=== PATIENT | male | born 1965 | race Caucasian/White ===

== ENCOUNTER 2020-06-04 09:34 | Inpatient (IN) | payer OTHER ==
[~2020-06-04] VITALS: Ht 190.5 cm; Wt 127.0 kg
[2020-06-04] VITALS (8 sets, daily range): BP systolic 139–147; BP diastolic 73–88
[~2020-06-04 09:34] MED LIST: ASA81 MG PO; Z.0.HYDROCHLOROTH12. PO; Z.0.NORVASC5 MG PO; [UNRECOGNIZED DRUG - OTHER] PO
[2020-06-04 10:28] LABS: BASOPHILS # (AUTO) 0.1 (0.0-0.1); BASOPHILS % 0.8 % (0.0-1.0); EOSINOPHILS # (AUTO) 0.1 (0.0-0.4); EOSINOPHILS % 1.2 % (0.0-6.0); HEMATOCRIT 49.7 % (38.2-49.6); HEMOGLOBIN 16.8 g/dL (14.0-18.0); LYMPHOCYTES # (AUTO) 1.1 (1.0-3.2); LYMPHOCYTES % 10.6 % (18.0-39.1); MEAN CORPUSCULAR HEMOGLOBIN 29.8 pg (28-32); MEAN CORPUSCULAR HGB CONC 33.8 g/dL (31-35); MEAN CORPUSCULAR VOLUME 88.1 fL (81-99); MONOCYTES # (AUTO) 0.9 (0.2-0.8); MONOCYTES % 8.6 % (4.4-11.3); NEUTROPHILS # (AUTO) 8.1 (2.1-6.9); NEUTROPHILS % 78.6 % (38.7-80.0); PLATELET COUNT 265 x10e3/uL (140-360); RED BLOOD COUNT 5.64 x10e6/uL (4.3-5.7); RED CELL DISTRIBUTION WIDTH 12.8 % (11.7-14.4)
[2020-06-04 10:50] LABS: ALANINE AMINOTRANSFERASE 136 IU/L (0-55); ALBUMIN 4.3 g/dL (3.5-5.0); ALBUMIN/GLOBULIN RATIO 1.3 (0.8-2.0); ALKALINE PHOSPHATASE 79 IU/L (40-150); ANION GAP 16.6 mmol/L (8-16); BLOOD UREA NITROGEN 27 mg/dL (7-26); BUN/CREATININE RATIO 25 (6-25); CALCIUM 9.1 mg/dL (8.4-10.2); CARBON DIOXIDE 27 mmol/L (22-29); CHLORIDE 100 mmol/L (98-107); CREATINE KINASE 304 IU/L (30-200); CREATININE, SERUM 1.08 mg/dL (0.72-1.25); EST GLOMERULAR FILTRATION RATE > 60 ML/MIN (60-); GLUCOSE 123 mg/dL (74-118); POTASSIUM 3.6 mmol/L (3.5-5.1); SODIUM 140 mmol/L (136-145)
[2020-06-04] MEDS ORDERED: GADOBENATE DIMEGLUMINE 1 ML IV ONE (11:34)
[2020-06-04] MEDS ORDERED: NEXIUM20 MG PO (13:23)
[2020-06-04] MEDS ORDERED: MELATONIN5 M4 PO (13:23)
[2020-06-04] MEDS ORDERED: ALLOPURINOL100 MG PO (13:23)
[2020-06-04] MEDS ORDERED: FOSINOPRIL SODI40 MG PO (15:54)
[2020-06-04] MEDS ORDERED: ONDANSETRON HCL INJ 2MG/ML 2ML 2 MG/ML VIAL IV PRN (17:30)
[2020-06-04] MEDS ORDERED: MAGNESIUM/ALUMINUM/SIMETHICONE 30 ML UDC PO PRN (17:30)
[2020-06-04] MEDS ORDERED: HYDRALAZINE HCL 20 MG/ML VIAL IV PRN (18:00)
[2020-06-04 18:14] LABS: CREATINE KINASE MB 2.1 ng/mL (0-5.0)
[2020-06-04] MEDS: MELATONIN 5 MG TABLET PO SCH (21:44)
[2020-06-04] MEDS: ACETAMINOPHEN 325 MG TAB PO PRN (21:51)
[2020-06-04] MEDS: TEMAZEPAM 7.5 MG CAP PO PRN (23:44)
[2020-06-05] VITALS (9 sets, daily range): BP systolic 119–175; BP diastolic 82–104
[2020-06-05 00:34] LABS: CREATINE KINASE MB 2.1 ng/mL (0-5.0)
[2020-06-05 00:47] LABS: FREE THYROXINE INDEX 2.2186 (1.4-3.8); THYROID STIMULATING HORMONE 2.089 uIU/mL (0.350-4.940)
[2020-06-05] MEDS: ACETAMINOPHEN 325 MG TAB PO PRN (04:51)
[2020-06-05] MEDS: ACETAMINOPHEN/CODEINE 300MG - 30MG TAB PO PRN ×3 (06:14→18:29)
[2020-06-05 06:28] LABS: BASOPHILS # (AUTO) 0.1 (0.0-0.1); EOSINOPHILS # (AUTO) 0.2 (0.0-0.4); EOSINOPHILS % 2.5 % (0.0-6.0); HEMATOCRIT 45.8 % (38.2-49.6); HEMOGLOBIN 15.5 g/dL (14.0-18.0); LYMPHOCYTES % 14.6 % (18.0-39.1); MEAN CORPUSCULAR HEMOGLOBIN 29.5 pg (28-32); MEAN CORPUSCULAR HGB CONC 33.8 g/dL (31-35); MEAN CORPUSCULAR VOLUME 87.2 fL (81-99); MONOCYTES # (AUTO) 0.8 (0.2-0.8); MONOCYTES % 11.3 % (4.4-11.3); NEUTROPHILS # (AUTO) 4.7 (2.1-6.9); NEUTROPHILS % 70.5 % (38.7-80.0); PLATELET COUNT 224 x10e3/uL (140-360); RED BLOOD COUNT 5.25 x10e6/uL (4.3-5.7); RED CELL DISTRIBUTION WIDTH 12.8 % (11.7-14.4)
[2020-06-05 07:06] LABS: ALANINE AMINOTRANSFERASE 120 IU/L (0-55); ALBUMIN 3.9 g/dL (3.5-5.0); ALBUMIN/GLOBULIN RATIO 1.2 (0.8-2.0); ALKALINE PHOSPHATASE 71 IU/L (40-150); ANION GAP 15.9 mmol/L (8-16); BLOOD UREA NITROGEN 24 mg/dL (7-26); BUN/CREATININE RATIO 29 (6-25); CALCIUM 9.1 mg/dL (8.4-10.2); CARBON DIOXIDE 26 mmol/L (22-29); CHLORIDE 98 mmol/L (98-107); CREATININE, SERUM 0.83 mg/dL (0.72-1.25); EST GLOMERULAR FILTRATION RATE > 60 ML/MIN (60-); GLUCOSE 122 mg/dL (74-118); SODIUM 137 mmol/L (136-145)
[2020-06-05 07:17] LABS: POTASSIUM 2.9 mmol/L (3.5-5.1)
[2020-06-05] MEDS ORDERED: POTASSIUM CHLORIDE 20 MEQ TAB CR PO STA (07:28)
[2020-06-05] MEDS: ALLOPURINOL 100 MG TAB PO SCH (07:55)
[2020-06-05] MEDS: AMLODIPINE BESYLATE 10 MG TAB PO SCH (07:55)
[2020-06-05] MEDS: GABAPENTIN 100 MG CAP PO SCH ×3 (07:55→20:44)
[2020-06-05] MEDS: HYDROCHLOROTHIAZIDE 25 MG TAB PO SCH (07:56)
[2020-06-05] MEDS: ASPIRIN 81 MG ENTERIC COATED PO SCH (07:56)
[2020-06-05 08:37] LABS: HIV 1&2 AB SCREEN NON-REACTIVE (NONREACTIVE)
[2020-06-05] MEDS: FOSINOPRIL SODIUM 10 MG TAB PO SCH (10:42)
[2020-06-05] MEDS: IBUPROFEN 400 MG TAB PO PRN ×2 (15:00→20:46)
[2020-06-05 16:24] LABS: % IRON SATURATION 20 % (15-50); IRON 69 ug/dL (65-175); TOTAL IRON BINDING CAPACITY 353 ug/dL (261-478); TRANSFERRIN 252 mg/dL (174-364)
[2020-06-05] MEDS ORDERED: SODIUM CHLORIDE 0.9% 250ML 250 ML ONE (17:27)
[2020-06-05] MEDS ORDERED: POTASSIUM CHLORIDE 10MEQ EA PO ONE (18:00)
[2020-06-05] MEDS: MELATONIN 5 MG TABLET PO SCH (20:44)
[2020-06-05] MEDS: [UNRECOGNIZED DRUG - OTHER] IV SCH ×2 (22:00→22:30)
[2020-06-06] VITALS (7 sets, daily range): BP systolic 114–139; BP diastolic 76–89
[2020-06-06] MEDS ORDERED: DIPHENHYDRAMINE HCL INJ 50 MG/ML VIAL IV PRN (01:45)
[2020-06-06] MEDS: ACETAMINOPHEN/CODEINE 300MG - 30MG TAB PO PRN ×4 (02:00→21:03)
[2020-06-06] MEDS ORDERED: DIPHENHYDRAMINE HCL INJ 50 MG/ML VIAL IV ONE (02:45)
[2020-06-06 05:42] LABS: INR 0.98; PROTHROMBIN TIME 13.6 seconds (11.9-14.5)
[2020-06-06] MEDS ORDERED: LIDOCAINE HCL 1% LOCAL INJ 20 ML VIAL ONE (08:09)
[2020-06-06] MEDS: AMLODIPINE BESYLATE 10 MG TAB PO SCH (08:35)
[2020-06-06] MEDS: ALLOPURINOL 100 MG TAB PO SCH (08:35)
[2020-06-06] MEDS: ASPIRIN 81 MG ENTERIC COATED PO SCH (08:35)
[2020-06-06] MEDS: GABAPENTIN 100 MG CAP PO SCH ×3 (08:35→21:02)
[2020-06-06] MEDS: FOSINOPRIL SODIUM 10 MG TAB PO SCH (08:35)
[2020-06-06] MEDS: HYDROCHLOROTHIAZIDE 25 MG TAB PO SCH (08:35)
[2020-06-06] MEDS ORDERED: IMMU GLOBULIN,GAMMA (IGG) 200 ML IV SCH (09:00)
[2020-06-06] MEDS: IBUPROFEN 400 MG TAB PO PRN (15:04)
[2020-06-06] MEDS ORDERED: MAGNESIUM HYDROXIDE 30 ML UDC PO ONE (20:30)
[2020-06-06] MEDS: DOCUSATE SODIUM 100 MG CAP PO PRN (21:02)
[2020-06-06] MEDS: MELATONIN 5 MG TABLET PO SCH (21:02)
[2020-06-07] VITALS (11 sets, daily range): BP systolic 122–154; BP diastolic 82–94
[2020-06-07] MEDS: ACETAMINOPHEN/CODEINE 300MG - 30MG TAB PO PRN ×2 (04:45→14:44)
[2020-06-07] MEDS: AMLODIPINE BESYLATE 10 MG TAB PO SCH (08:16)
[2020-06-07] MEDS: ALLOPURINOL 100 MG TAB PO SCH (08:16)
[2020-06-07] MEDS: HYDROCHLOROTHIAZIDE 25 MG TAB PO SCH (08:16)
[2020-06-07] MEDS: ASPIRIN 81 MG ENTERIC COATED PO SCH (08:16)
[2020-06-07] MEDS: FOSINOPRIL SODIUM 10 MG TAB PO SCH (08:16)
[2020-06-07] MEDS: GABAPENTIN 100 MG CAP PO SCH ×3 (08:16→20:44)
[2020-06-07] MEDS ORDERED: MAGNESIUM HYDROXIDE 30 ML UDC PO PRN (13:45)
[2020-06-07 14:22] LABS: APPEARANCE,CSF CLEAR (CLEAR)
[2020-06-07 14:23] LABS: TUBE NUMBER 3; WHITE BLOOD CELL,CSF 5 cells/uL (0-5)
[2020-06-07 14:26] LABS: COLOR,CSF XANTHOCHROMIC (COLORLESS)
[2020-06-07] MEDS ORDERED: CITRATE OF MAGNESIA 300ML BOTTLE PO ONE (16:15)
[2020-06-07] MEDS: MELATONIN 5 MG TABLET PO SCH (20:44)
[2020-06-07] MEDS: DOCUSATE SODIUM 100 MG CAP PO PRN (20:49)
[2020-06-07] MEDS: TEMAZEPAM 7.5 MG CAP PO PRN (20:49)
[2020-06-08] VITALS (8 sets, daily range): BP systolic 124–165; BP diastolic 78–96
[2020-06-08] MEDS: AMLODIPINE BESYLATE 10 MG TAB PO SCH (09:33)
[2020-06-08] MEDS: ALLOPURINOL 100 MG TAB PO SCH (09:33)
[2020-06-08] MEDS: HYDROCHLOROTHIAZIDE 25 MG TAB PO SCH (09:33)
[2020-06-08] MEDS: GABAPENTIN 100 MG CAP PO SCH ×3 (09:33→22:03)
[2020-06-08] MEDS: ASPIRIN 81 MG ENTERIC COATED PO SCH (09:33)
[2020-06-08] MEDS: FOSINOPRIL SODIUM 10 MG TAB PO SCH ×2 (09:33→22:12)
[2020-06-08] MEDS: DOCUSATE SODIUM 100 MG CAP PO PRN ×2 (12:30→16:59)
[2020-06-08] MEDS: MELATONIN 5 MG TABLET PO SCH (21:00)
[2020-06-08] MEDS: TEMAZEPAM 7.5 MG CAP PO PRN (22:23)
[2020-06-09] VITALS (7 sets, daily range): BP systolic 121–140; BP diastolic 55–94
[2020-06-09] MEDS: GABAPENTIN 100 MG CAP PO SCH ×3 (08:45→20:55)
[2020-06-09] MEDS: ALLOPURINOL 100 MG TAB PO SCH (08:45)
[2020-06-09] MEDS: FOSINOPRIL SODIUM 10 MG TAB PO SCH (08:45)
[2020-06-09] MEDS: ASPIRIN 81 MG ENTERIC COATED PO SCH (08:45)
[2020-06-09] MEDS: AMLODIPINE BESYLATE 10 MG TAB PO SCH (08:45)
[2020-06-09] MEDS: HYDROCHLOROTHIAZIDE 25 MG TAB PO SCH (08:45)
[2020-06-09] MEDS ORDERED: IMMU GLOBULIN,GAMMA (IGG) 200 ML IV SCH ×2 (14:00→15:00)
[2020-06-09] MEDS ORDERED: METHYLPREDNISOLONE SOD SUCC 125 MG/2ML VIAL IV ONE (15:00)
[2020-06-09] MEDS: ACETAMINOPHEN 325 MG TAB PO SCH (16:50)
[2020-06-09] MEDS: SODIUM CHLORIDE 0.9% IV SCH (16:50)
[2020-06-09] MEDS: METHYLPREDNISOLONE SOD SUCC IV SCH (16:50)
[2020-06-09] MEDS: DIPHENHYDRAMINE HCL INJ 50 MG/ML VIAL IV SCH (16:50)
[2020-06-09] MEDS: IMMU GLOBULIN,GAMMA (IGG) 400 ML IV SCH (17:40)
[2020-06-09] MEDS: MELATONIN 5 MG TABLET PO SCH (20:55)
[2020-06-09] MEDS: TEMAZEPAM 7.5 MG CAP PO PRN (23:30)
[2020-06-10] VITALS (7 sets, daily range): BP systolic 130–140; BP diastolic 83–94
[2020-06-10] MEDS: GABAPENTIN 100 MG CAP PO SCH ×3 (08:24→20:12)
[2020-06-10] MEDS: ALLOPURINOL 100 MG TAB PO SCH (08:24)
[2020-06-10] MEDS: FOSINOPRIL SODIUM 10 MG TAB PO SCH ×2 (08:24→16:24)
[2020-06-10] MEDS: AMLODIPINE BESYLATE 10 MG TAB PO SCH (08:24)
[2020-06-10] MEDS: ASPIRIN 81 MG ENTERIC COATED PO SCH (08:24)
[2020-06-10] MEDS: POLYETHYLENE GLYCOL 3350 17 GM PACK PO SCH (08:24)
[2020-06-10] MEDS: HYDROCHLOROTHIAZIDE 25 MG TAB PO SCH (08:24)
[2020-06-10] MEDS: METHYLPREDNISOLONE SOD SUCC IV SCH (15:00)
[2020-06-10] MEDS: ACETAMINOPHEN 325 MG TAB PO SCH (15:00)
[2020-06-10] MEDS: DIPHENHYDRAMINE HCL INJ 50 MG/ML VIAL IV SCH (15:00)
[2020-06-10] MEDS: SODIUM CHLORIDE 0.9% IV SCH (15:00)
[2020-06-10] MEDS: IMMU GLOBULIN,GAMMA (IGG) 400 ML IV SCH (17:13)
[2020-06-10] MEDS: TEMAZEPAM 7.5 MG CAP PO PRN (20:12)
[2020-06-10] MEDS: MELATONIN 5 MG TABLET PO SCH (20:12)
[2020-06-11] VITALS (7 sets, daily range): BP systolic 126–147; BP diastolic 83–98
[2020-06-11] MEDS: POLYETHYLENE GLYCOL 3350 17 GM PACK PO SCH (08:30)
[2020-06-11] MEDS: ASPIRIN 81 MG ENTERIC COATED PO SCH (08:30)
[2020-06-11] MEDS: HYDROCHLOROTHIAZIDE 25 MG TAB PO SCH (08:31)
[2020-06-11] MEDS: AMLODIPINE BESYLATE 10 MG TAB PO SCH (08:36)
[2020-06-11] MEDS: FOSINOPRIL SODIUM 10 MG TAB PO SCH ×2 (08:36→16:00)
[2020-06-11] MEDS: ALLOPURINOL 100 MG TAB PO SCH (08:36)
[2020-06-11] MEDS: GABAPENTIN 100 MG CAP PO SCH ×3 (08:36→20:36)
[2020-06-11] MEDS: MELATONIN 5 MG TABLET PO SCH (20:36)
[2020-06-11] MEDS: TEMAZEPAM 7.5 MG CAP PO PRN (21:30)
[2020-06-12] VITALS (7 sets, daily range): BP systolic 116–143; BP diastolic 81–98
[2020-06-12] MEDS: ASPIRIN 81 MG ENTERIC COATED PO SCH (08:50)
[2020-06-12] MEDS: HYDROCHLOROTHIAZIDE 25 MG TAB PO SCH (08:51)
[2020-06-12] MEDS: POLYETHYLENE GLYCOL 3350 17 GM PACK PO SCH (08:51)
[2020-06-12] MEDS: GABAPENTIN 100 MG CAP PO SCH ×3 (08:51→20:27)
[2020-06-12] MEDS: FOSINOPRIL SODIUM 10 MG TAB PO SCH ×2 (08:51→16:10)
[2020-06-12] MEDS: AMLODIPINE BESYLATE 10 MG TAB PO SCH (08:52)
[2020-06-12] MEDS: ALLOPURINOL 100 MG TAB PO SCH (08:52)
[2020-06-12] MEDS: TEMAZEPAM 7.5 MG CAP PO PRN (20:27)
[2020-06-12] MEDS: MELATONIN 5 MG TABLET PO SCH (20:27)
[2020-06-13] VITALS (9 sets, daily range): BP systolic 116–143; BP diastolic 73–93
[2020-06-13] MEDS: HYDROCHLOROTHIAZIDE 25 MG TAB PO SCH (09:15)
[2020-06-13] MEDS: ALLOPURINOL 100 MG TAB PO SCH (09:15)
[2020-06-13] MEDS: AMLODIPINE BESYLATE 10 MG TAB PO SCH (09:15)
[2020-06-13] MEDS: POLYETHYLENE GLYCOL 3350 17 GM PACK PO SCH (09:15)
[2020-06-13] MEDS: ASPIRIN 81 MG ENTERIC COATED PO SCH (09:15)
[2020-06-13] MEDS: FOSINOPRIL SODIUM 10 MG TAB PO SCH ×2 (09:15→16:27)
[2020-06-13] MEDS: GABAPENTIN 100 MG CAP PO SCH ×3 (09:15→20:54)
[2020-06-13] MEDS: MELATONIN 5 MG TABLET PO SCH (20:54)
[2020-06-13] MEDS: TEMAZEPAM 15 MG CAP PO PRN (20:54)
[2020-06-14] VITALS (7 sets, daily range): BP systolic 127–159; BP diastolic 84–97
[2020-06-14] MEDS: ASPIRIN 81 MG ENTERIC COATED PO SCH (09:54)
[2020-06-14] MEDS: POLYETHYLENE GLYCOL 3350 17 GM PACK PO SCH (09:54)
[2020-06-14] MEDS: HYDROCHLOROTHIAZIDE 25 MG TAB PO SCH (09:54)
[2020-06-14] MEDS: GABAPENTIN 100 MG CAP PO SCH ×3 (09:55→20:31)
[2020-06-14] MEDS: FOSINOPRIL SODIUM 10 MG TAB PO SCH ×2 (09:56→17:36)
[2020-06-14] MEDS: ALLOPURINOL 100 MG TAB PO SCH (09:56)
[2020-06-14] MEDS: AMLODIPINE BESYLATE 10 MG TAB PO SCH (09:56)
[2020-06-14] MEDS ORDERED: SODIUM CHLORIDE 0.9% 250ML 250 ML ONE (13:38)
[2020-06-14] MEDS ORDERED: ACETAMINOPHEN 325 MG TAB PO SCH (14:00)
[2020-06-14] MEDS ORDERED: SODIUM CHLORIDE 0.9% IV SCH (14:00)
[2020-06-14] MEDS ORDERED: METHYLPREDNISOLONE SOD SUCC IV SCH (14:00)
[2020-06-14] MEDS ORDERED: DIPHENHYDRAMINE HCL INJ 50 MG/ML VIAL IV SCH (14:00)
[2020-06-14] MEDS ORDERED: IMMU GLOBULIN,GAMMA (IGG) 400 ML IV SCH (15:00)
[2020-06-14] MEDS: MELATONIN 5 MG TABLET PO SCH (20:31)
[2020-06-14] MEDS: TEMAZEPAM 15 MG CAP PO PRN (20:31)
[2020-06-15] VITALS: BP 112/74
[2020-06-15 05:05] VITALS: BP 124/84
[2020-06-15 07:43] VITALS: BP 147/86
[2020-06-15 08:41] VITALS: BP 147/86
[2020-06-15] MEDS: HYDROCHLOROTHIAZIDE 25 MG TAB PO SCH (08:43)
[2020-06-15] MEDS: ASPIRIN 81 MG ENTERIC COATED PO SCH (08:43)
[2020-06-15] MEDS: POLYETHYLENE GLYCOL 3350 17 GM PACK PO SCH (08:43)
[2020-06-15] MEDS: GABAPENTIN 100 MG CAP PO SCH ×2 (08:44→15:24)
[2020-06-15] MEDS: FOSINOPRIL SODIUM 10 MG TAB PO SCH ×2 (08:44→16:17)
[2020-06-15] MEDS: ALLOPURINOL 100 MG TAB PO SCH (08:45)
[2020-06-15] MEDS: AMLODIPINE BESYLATE 10 MG TAB PO SCH (08:45)
[2020-06-15 11:37] VITALS: BP 137/90
[2020-06-15] MEDS ORDERED: GABAPENTIN100 MG PO (14:34)
== END 2020-06-15 16:48 | disposition home or self-care (01) | DRG 59 ==
LOC: ER 10:01 → ERHOLD 12:22 → MED/SURG2 13:39
PROVIDERS: ADMIT Internal Medicine; ATTEND Internal Medicine
PROC: 009U3ZX Drainage of Spinal Canal, Percutaneous Approach, Diagnostic (ICD-10-PCS; principal; 2020-06-07)
DX: G37.9 Demyelinating disease of central nervous system, unspecified (principal); G61.0 Guillain-Barre syndrome; M62.82 Rhabdomyolysis; I10 Essential (primary) hypertension; M47.896 Other spondylosis, lumbar region; Z74.09 Other reduced mobility; R94.5 Abnormal results of liver function studies; M10.9 Gout, unspecified; G62.89 Other specified polyneuropathies; Z20.822 Contact with and (suspected) exposure to COVID-19; M51.16 Intervertebral disc disorders with radiculopathy, lumbar region; Z96.652 Presence of left artificial knee joint
CPT/HCPCS: 36415; 62328; 70553; 72156; 72157; 72158; 74470; 80053; 82550; 82553; 82607; 82746; 82945; 83036; 83519; 83540; 83735; 83874; 83916; 84100; 84132; 84436; 84443; 84466; 84479; 84484; 85025; 85610; 85651; 86039; 86789; 87070; 87205; 87390; 89051; 97139; 99284; G0433; G0435; J0360; J1200; J1561; J2001; J2405; J2930; J7050; U0002